=== PATIENT | male | born 1985 | race African-American/Black ===

== ENCOUNTER 2021-09-14 00:07 | Inpatient (IN) | payer MEDICAID ==
[~2021-09-14] VITALS: Ht 175.3 cm; Wt 77.1 kg
[2021-09-14] MEDS ORDERED: FAMOTIDINE 20MG/2ML VIAL IV STA (01:31)
[2021-09-14] MEDS ORDERED: MORPHINE SULFATE 4 MG/ML CPJ (NOT FOR IM USE) IV STA (01:31)
[2021-09-14] MEDS ORDERED: ONDANSETRON HCL 4MG/2ML INJ IV STA (01:31)
[2021-09-14] MEDS ORDERED: SODIUM CHLORIDE 0.9% 1,000 ML IV ONE (01:45)
[2021-09-14 02:10] LABS: CLARITY URINE CLEAR (CLEAR); COLOR URINE YELLOW (YELLOW); KETONES URINE TRACE (NEGATIVE); LEUKOCYTE ESTERASE URINE 1+ (NEGATIVE); NITRITE URINE NEGATIVE (NEGATIVE); OCCULT BLOOD URINE NEGATIVE (NEGATIVE); PH URINE 5.5 (4.5-8.0); PROTEIN URINE NEGATIVE (NEGATIVE); SPECIFIC GRAVITY URINE 1.016 (1.005-1.030)
[2021-09-14 02:15] LABS: BASOPHILS % 0.4 % (0.0-2.0); EOSINOPHILS % 0.8 % (0.0-5.0); HEMOGLOBIN. 15.6 g/dL (14.0-18.0); LYMPHOCYTES % 13.1 % (20.0-50.0); MEAN CORPUSCULAR HEMOGLOBIN 30.1 pg (28.0-32.0); MEAN CORPUSCULAR VOLUME 86.9 fL (80.0-94.0); MEAN PLATELET VOLUME 9.4 fl (7.4-10.4); MONOCYTES % 10.1 % (2.0-8.0); NEUTROPHILS % 75.6 % (40.0-76.0); PLATELET 185 x1000/uL (130-400); RED BLOOD CELL COUNT 5.19 mill/uL (4.7-6.1); RED CELL DISTRIBUTION WIDTH 13.6 % (11.6-14.6)
[2021-09-14 02:21] LABS: CHLORIDE 101 mEq/L (98-107)
[2021-09-14] MEDS ORDERED: ONDANSETRON HCL 4MG/2ML INJ IV PRN (09:30)
[2021-09-14] MEDS ORDERED: NALOXONE HCL 0.4MG/ML VIAL IV PRN (09:45)
[2021-09-14] MEDS: ENOXAPARIN 40MG/0.4ML SYR SUBCUT SCH (10:23)
[2021-09-14] MEDS: DEXT 5%/0.45% NACL 1000ML 1,000 ML IV SCH ×2 (10:23→16:30)
[2021-09-14] MEDS: MORPHINE SULFATE 2 MG/ML CPJ (NOT FOR IM USE) IV PRN ×2 (10:24→20:29)
[2021-09-14 11:45] VITALS: BP 114/70
[2021-09-14 12:00] VITALS: BP 114/70
[2021-09-14] MEDS ORDERED: ACET-2708 PO (12:32)
[2021-09-14 16:00] VITALS: BP 103/59
[2021-09-14] MEDS ORDERED: INFLUENZA VACCINE 05/PF 0.5 ML SYRINGE IM ONE (16:00)
[2021-09-14 20:00] VITALS: BP 116/69
[2021-09-15] VITALS: BP 118/62
[2021-09-15 01:05] LABS: HEMOGLOBIN. 14.2 g/dL (14.0-18.0); MEAN CORPUSCULAR HEMOGLOBIN 30.2 pg (28.0-32.0); MEAN CORPUSCULAR VOLUME 87.1 fL (80.0-94.0); MEAN PLATELET VOLUME 9.2 fl (7.4-10.4); PLATELET 165 x1000/uL (130-400); RED CELL DISTRIBUTION WIDTH 13.5 % (11.6-14.6)
[2021-09-15 01:25] LABS: CHLORIDE 104 mEq/L (98-107)
[2021-09-15 02:35] LABS: ATYPICAL LYMPHOCYTES 1
[2021-09-15 02:36] LABS: PLATELET ESTIMATE NORMAL
[2021-09-15 08:00] VITALS: BP 113/62
[2021-09-15] MEDS: ENOXAPARIN 40MG/0.4ML SYR SUBCUT SCH (08:24)
[2021-09-15] MEDS: DEXT 5%/0.45% NACL 1000ML 1,000 ML IV SCH (11:19)
[2021-09-15 12:00] VITALS: BP 119/52
[2021-09-15 14:37] VITALS: BP 119/52
== END 2021-09-15 15:20 | disposition home or self-care (01) | DRG 247 ==
LOC: ER 00:07 → 6EST 06:37 → ENRESERV 10:13
PROVIDERS: ADMIT Family Medicine; ATTEND Family Medicine
DX: K56.600 Partial intestinal obstruction, unspecified as to cause (principal); E87.1 Hypo-osmolality and hyponatremia; E86.0 Dehydration; K52.9 Noninfective gastroenteritis and colitis, unspecified; R73.9 Hyperglycemia, unspecified
CPT/HCPCS: 36415; 71045; 74018; 74176; 80053; 81003; 83605; 85025; 90686; 99285; J1650; J2270; J2405; J3490; J7030